=== PATIENT | male | born 1985 | race Caucasian/White ===

== ENCOUNTER 2018-09-12 06:31 | Emergency (ER) | payer OTHER ==
[~2018-09-12] VITALS: Ht 188 cm; Wt 99.8 kg
--- NOTE | 2018-09-12 07:15 | NUR ---
left foot with halo that was supposed to be removed 2 years ago per pt. wound with foul odor on top of left foot. another wound with foul odor on the heel of the right foot.
[2018-09-12] MEDS ORDERED: SULFAMETH/TRIMETH 800/160 MG TABLET PO ONE (07:30)
[2018-09-12] MEDS ORDERED: CEphaleXIN 500 MG CAPSULE PO ONE (07:30)
[2018-09-12] MEDS ORDERED: MUPIROCIN 2% OINT 22 GM TUBE TP ONE (07:30)
[2018-09-12] MEDS ORDERED: CEphaleXIN 500 MG CAPSULE ONE (07:37)
[2018-09-12] MEDS ORDERED: SULFAMETH/TRIMETH 800/160 MG TABLET ONE (07:37)
--- NOTE | 2018-09-12 08:30 | NUR ---
lapd remove both hand cuffs. pt not in custody. pt girl friend will come and picker the pt and take the pt to [facility] for follow up.
--- NOTE | 2018-09-12 08:56 | NUR ---
Patient discharged to home in stable conditon. Written and verbal after care instructions given. Patient verbalizes understanding of instructions.
--- NOTE | 2018-09-12 09:02 | NUR ---
pt left er using own wheelchair.
[2018-09-12 09:05] VITALS: BP 149/81
== END 2018-09-12 09:06 | disposition home or self-care (01) ==
LOC: ER 06:34
DX: L08.9 Local infection of the skin and subcutaneous tissue, unspecified (principal); F17.200 Nicotine dependence, unspecified, uncomplicated
CPT/HCPCS: A4217; A4663